=== PATIENT | male | born 1955 | race Caucasian/White ===

== ENCOUNTER → 2016-11-06 | Outpatient (CLI) | payer SELFPAY ==
[~2016-11-06] MED LIST: LANTUS100 UNIT/1 SQ
== END | disposition home or self-care (01) ==
LOC: RAD 11-05 11:00 → MRI 09:58 → RAD 11:00 → MRI 11:00
DX: M75.120 Complete rotator cuff tear or rupture of unspecified shoulder, not specified as traumatic (principal); M19.012 Primary osteoarthritis, left shoulder
CPT/HCPCS: 73221

== ENCOUNTER → 2017-07-18 | Outpatient (CLI) | payer SELFPAY | END | disposition home or self-care (01) | LOC: MRI 10:35 → RAD 11:00 → MRI 11:00 | DX: I67.89 Other cerebrovascular disease (principal); G93.89 Other specified disorders of brain; R27.8 Other lack of coordination; R53.1 Weakness | CPT/HCPCS: 70551 ==

== ENCOUNTER 2017-08-09 17:25 | Observation (INO) | payer SELFPAY ==
[~2017-08-09] VITALS: Ht 177.8 cm; Wt 122.5 kg
[2017-08-09 18:03] LABS: HEMATOCRIT 38.5 % (38.0-50.0); MCHC 33.2 G/DL (30.0-36.0); MCV 90.4 FL (86-99); MEAN PLAT.VOLUME 9.9 uM^3 (9.0-12.4); PLATELET COUNT 253 K/uL (156-360); RBC DIS.WIDTH-CV 12.8 % (11.8-14.6); RBC DIS.WIDTH-SD 41.6 % (39-53); RED BLOOD COUNT 4.26 M/uL (4.00-5.50); WHITE BLOOD COUNT 9.1 K/uL (4.1-10.2)
[2017-08-09 18:11] LABS: CHLORIDE 103 mEq/L (99-109); POTASSIUM 4.1 mEq/L (3.7-5.4); SODIUM 140 mEq/L (136-147)
[2017-08-09 18:13] LABS: GLUCOSE 282 mg/dL (70-99)
[2017-08-09 18:14] LABS: ANION GAP 11 MEQ/L (2-14)
[2017-08-09 18:17] LABS: GFR ESTIMATE (CALCULATED) 55 mL/min/ (58.99-99999)
[2017-08-09 18:18] LABS: UREA NITROGEN (BUN) 17 mg/dL (9-23)
[2017-08-09 18:24] LABS: TROP-I INTERPRETATION NEGATIVE; TROPONIN-I < 0.01 ng/mL (0.0-0.30)
[2017-08-09] MEDS ORDERED: VASOTEC20 MG PO (19:10)
[2017-08-09] MEDS ORDERED: LANTUS 10100 UNITS/ SC (19:10)
[2017-08-09] MEDS ORDERED: GLUCOPHAGE500 MG PO (19:11)
[2017-08-09] MEDS ORDERED: AMARYL1 MG PO (19:11)
[2017-08-09] MEDS ORDERED: SIMVASTATIN20 MG PO (19:12)
[2017-08-09] MEDS ORDERED: LASIX20 MG PO (19:12)
[2017-08-09] MEDS ORDERED: LOPRESSOR50 MG PO (19:12)
[2017-08-09] MEDS ORDERED: PERCOCET 10/1 TABLET PO (19:13)
[2017-08-09] MEDS ORDERED: ASPIRIN81 M2 PO (19:13)
[2017-08-09] MEDS ORDERED: ALLOPURINOL300 MG PO (19:13)
[2017-08-09] MEDS ORDERED: HUMALOG100 UNIT/1 SC (19:15)
[2017-08-09 20:53] VITALS: BP 162/80
[2017-08-09 21:44] LABS: POINT-OF-CARE METER ID UU14162513
[2017-08-09 23:16] VITALS: BP 143/63
[2017-08-09 23:16] LABS: TROP-I INTERPRETATION NEGATIVE; TROPONIN-I < 0.01 ng/mL (0.0-0.30)
[2017-08-10 03:41] VITALS: BP 135/77
[2017-08-10 05:45] LABS: HEMATOCRIT 35.7 % (38.0-50.0); MCH 30.6 PG (29.0-34.0); MCHC 33.9 G/DL (30.0-36.0); MCV 90.4 FL (86-99); MEAN PLAT.VOLUME 10.1 uM^3 (9.0-12.4); PLATELET COUNT 249 K/uL (156-360); RBC DIS.WIDTH-CV 12.8 % (11.8-14.6); RBC DIS.WIDTH-SD 42.4 % (39-53); RED BLOOD COUNT 3.95 M/uL (4.00-5.50); WHITE BLOOD COUNT 7.9 K/uL (4.1-10.2)
[2017-08-10 05:56] LABS: TROP-I INTERPRETATION NEGATIVE; TROPONIN-I < 0.01 ng/mL (0.0-0.30)
[2017-08-10 06:02] LABS: ANION GAP 10 MEQ/L (2-14); CHLORIDE 105 MEQ/L (99-109); GFR ESTIMATE (CALCULATED) > 59 mL/min/ (58.99-99999); POTASSIUM 3.4 MEQ/L (3.7-5.4); SAMPLE HEMOLYSIS CHECK 0; SAMPLE ICTERIC CHECK 0; SAMPLE LIPEMIA CHECK 0; SODIUM 142 MEQ/L (136-147); UREA NITROGEN (BUN) 18 mg/dL (9-23)
[2017-08-10 06:05] LABS: GLUCOSE 100 mg/dL (70-99)
[2017-08-10 08:00] VITALS: BP 145/79
[2017-08-10 12:13] VITALS: BP 137/87
[2017-08-10 17:39] LABS: POINT-OF-CARE METER ID UU13113700
== END 2017-08-10 20:22 | disposition left against medical advice (07) ==
LOC: EME 17:25 → EDOF 19:28 → ENRESERV 19:29 → 5WEST 20:39
PROVIDERS: Hospitalist
DX: R07.9 Chest pain, unspecified (principal); R06.02 Shortness of breath; M79.89 Other specified soft tissue disorders; Z53.21 Procedure and treatment not carried out due to patient leaving prior to being seen by health care provider; I45.2 Bifascicular block; I10 Essential (primary) hypertension; G20 Parkinson's disease; E78.5 Hyperlipidemia, unspecified; E11.65 Type 2 diabetes mellitus with hyperglycemia; E66.01 Morbid (severe) obesity due to excess calories; Z68.38 Body mass index [BMI] 38.0-38.9, adult; Z90.49 Acquired absence of other specified parts of digestive tract; Z82.49 Family history of ischemic heart disease and other diseases of the circulatory system; Z79.82 Long term (current) use of aspirin; Z79.4 Long term (current) use of insulin
CPT/HCPCS: 71020; 80048; 82948; 84484; 85027; 93005; 99281; 99285; G0378; J1644; J1815; J7030

== ENCOUNTER → 2017-08-21 | Outpatient (CLI) | payer SELFPAY ==
[~2017-08-21] MED LIST changes: +ALLOPURINOL300 MG PO; +AMARYL1 MG PO; +ASPIRIN81 M2 PO; +GLUCOPHAGE500 MG PO; +HUMALOG100 UNIT/1 SC; +LANTUS 10100 UNITS/ SC; +LASIX20 MG PO; +LOPRESSOR50 MG PO; +PERCOCET 10/1 TABLET PO; +SIMVASTATIN20 MG PO; +VASOTEC20 MG PO
== END | disposition home or self-care (01) ==
LOC: NUC 08:05
DX: I25.9 Chronic ischemic heart disease, unspecified (principal); I45.2 Bifascicular block; G20 Parkinson's disease
CPT/HCPCS: 78452; 93017; A9500; J2785

== ENCOUNTER 2017-09-10 07:58 | Day surgery (SDC) | payer BC ==
[~2017-09-10] VITALS: Ht 177.8 cm; Wt 122.5 kg
[~2017-09-10 07:58] MED LIST changes: -AMARYL1 MG PO; +AMARYL2 MG PO; +CARBIDOPA-LEVO1 EA10 PO; +HYDROCHLOROTHIA25 MG PO; +VITAMIN B COMP1 EACH PO; +VITAMIN D35000 UNIT PO; +ZYRTEC10 M3 PO
== END 2017-09-10 17:30 | disposition home or self-care (01) ==
LOC: CATH 07:58
PROVIDERS: Internal Medicine Cardiovascular Disease
DX: I25.10 Atherosclerotic heart disease of native coronary artery without angina pectoris (principal); I10 Essential (primary) hypertension; E11.9 Type 2 diabetes mellitus without complications; E78.5 Hyperlipidemia, unspecified; E66.01 Morbid (severe) obesity due to excess calories; Z68.41 Body mass index [BMI] 40.0-44.9, adult; Z79.4 Long term (current) use of insulin; Z82.49 Family history of ischemic heart disease and other diseases of the circulatory system; I45.10 Unspecified right bundle-branch block; Z79.82 Long term (current) use of aspirin
CPT/HCPCS: 82948; C1769; C1887; J1644; J2250; J3010; J7040

== ENCOUNTER → 2018-01-06 | Outpatient (CLI) | payer BC | END | disposition home or self-care (01) | LOC: NUC 09:00 | DX: G21.4 Vascular parkinsonism (principal) | CPT/HCPCS: 78607; A9584 ==

== ENCOUNTER 2018-03-26 07:01 | Observation (INO) | payer BC ==
[~2018-03-26] VITALS: Ht 177.8 cm; Wt 124.7 kg
[~2018-03-26 07:01] MED LIST changes: +LOPRESSOR100 M1 PO; -LOPRESSOR50 MG PO; -SIMVASTATIN20 MG PO; +ZOCOR10 MG PO; +ZYRTEC10 M2 PO; -ZYRTEC10 M3 PO
[2018-03-26 08:06] LABS: HEMATOCRIT 38.1 % (38.0-50.0); HEMOGLOBIN 13.2 G/DL (12.5-16.6); MCH 30.9 PG (29.0-34.0); MCHC 34.6 G/DL (30.0-36.0); MCV 89.2 FL (86-99); PLATELET COUNT 268 K/uL (156-360); RBC DIS.WIDTH-CV 12.8 % (11.8-14.6); RBC DIS.WIDTH-SD 41.8 % (39-53); RED BLOOD COUNT 4.27 M/uL (4.00-5.50); WHITE BLOOD COUNT 12.2 K/uL (4.1-10.2)
[2018-03-26 08:17] LABS: CHLORIDE 111 mEq/L (99-109); POTASSIUM 4.5 mEq/L (3.7-5.4); SODIUM 144 mEq/L (136-147)
[2018-03-26 08:19] LABS: GLUCOSE 83 mg/dL (70-99)
[2018-03-26 08:22] LABS: CREATININE 1.2 mg/dL (0.6-1.3); GFR ESTIMATE (CALCULATED) > 59 mL/min/ (58.99-99999)
[2018-03-26 08:23] LABS: UREA NITROGEN (BUN) 16 mg/dL (9-23)
[2018-03-26 08:46] LABS: APPEARANCE CLEAR ((CLEAR)); BILIRUBIN NEGATIVE; BLOOD SMALL; COLOR YELLOW ((YELLOW)); GLUCOSE (STRIP) NEGATIVE; KETONES NEGATIVE; LEUKOCYTES NEGATIVE; NITRITE NEGATIVE; PROTEIN (STRIP) >=500; SPECIFIC GRAVITY 1.011 (1.000-1.030); UROBILINOGEN 0.2 MG/DL (0.2-1.0)
[2018-03-26 09:05] LABS: BACTERIA RARE /HPF; EPITHELIAL CELLS RARE /HPF; HYALINE CASTS 0-5 /LPF; MUCUS RARE /LPF; RED BLOOD CELLS 0-5 /HPF (0-5); UCUL ADDED? NO; WHITE BLOOD CELLS 0-5 /HPF (0-5)
[2018-03-26] MEDS ORDERED: SYMMETREL100 M1 PO (11:54)
[2018-03-26] MEDS ORDERED: CHLOROTHIAZIDE250 MG PO (11:55)
[2018-03-26] MEDS ORDERED: LEVEMIR FL100 UNIT/1 SC (11:55)
[2018-03-26] MEDS ORDERED: ZESTRIL5 MG PO (11:55)
[2018-03-26 14:17] LABS: HDL CHOLESTEROL 48 MG/DL (Desirable>=40); LDL CHOLESTEROL 68 mg/dL (Desirable<100); NON-HDL CHOLESTEROL 92 mg/dL (Desirable<160); TOTAL CHOLESTEROL 140 mg/dL (Desirable<200); TRIGLYCERIDES 119 MG/DL (Normal: <150)
[2018-03-26 15:22] VITALS: BP 164/98
[2018-03-27 00:09] VITALS: BP 140/65
[2018-03-27 05:17] VITALS: BP 167/81
[2018-03-27 06:04] LABS: HEMATOCRIT 37.2 % (38.0-50.0); HEMOGLOBIN 12.4 G/DL (12.5-16.6); MCH 29.8 PG (29.0-34.0); MCHC 33.3 G/DL (30.0-36.0); MCV 89.4 FL (86-99); PLATELET COUNT 259 K/uL (156-360); RBC DIS.WIDTH-CV 12.8 % (11.8-14.6); RBC DIS.WIDTH-SD 42.2 % (39-53); RED BLOOD COUNT 4.16 M/uL (4.00-5.50); WHITE BLOOD COUNT 8.5 K/uL (4.1-10.2)
[2018-03-27 08:00] VITALS: BP 187/86
[2018-03-27 10:27] LABS: HEMOGLOBIN A1c (GLYCOHEMOGLOB) 8.6 % (Below 5.7)
[2018-03-28] MEDS ORDERED: GLUCOPHAGE500 MG PO (07:32)
[2018-03-28] MEDS ORDERED: AMARYL2 MG PO (07:32)
== END 2018-03-27 10:46 | disposition home or self-care (01) ==
LOC: EME 07:01 → EDOF 11:11 → 4SOUTH 11:11 → ENRESERV 11:14 → 4SOUTH 14:23
PROVIDERS: Emergency Medicine; Internal Medicine; Physician Assistant Medical
DX: R56.9 Unspecified convulsions (principal); E11.649 Type 2 diabetes mellitus with hypoglycemia without coma; I10 Essential (primary) hypertension; E78.5 Hyperlipidemia, unspecified; G20 Parkinson's disease; I99.8 Other disorder of circulatory system; D72.829 Elevated white blood cell count, unspecified; M25.512 Pain in left shoulder; Z90.49 Acquired absence of other specified parts of digestive tract; Z79.82 Long term (current) use of aspirin; Z79.4 Long term (current) use of insulin
CPT/HCPCS: 70450; 70551; 80048; 80061; 81003; 82948; 83036; 85027; 92610 GN; 93005; 93880; 95819; 99281; 99284; G0378; G8978 GP CH; G8979 GP CH; G8980 GP CH; G8987 GO CH; G8988 GO CH; G8989 GO CH; G8996 GN CH; G8997 GN CH; G8998 GN CH; G9033; J1650; J1815

== ENCOUNTER 2018-03-28 05:00 | Inpatient (IN) | payer BC ==
[~2018-03-28] VITALS: Ht 177.8 cm; Wt 120.4 kg
[~2018-03-28 05:00] MED LIST changes: +CHLOROTHIAZIDE250 MG PO; +LEVEMIR FL100 UNIT/1 SC; +SYMMETREL100 M1 PO; +ZESTRIL5 MG PO
[2018-03-28 05:29] LABS: HEMATOCRIT 38.8 % (38.0-50.0); HEMOGLOBIN 13.5 G/DL (12.5-16.6); MCH 30.4 PG (29.0-34.0); MCHC 34.8 G/DL (30.0-36.0); MCV 87.4 FL (86-99); PLATELET COUNT 263 K/uL (156-360); RBC DIS.WIDTH-CV 12.5 % (11.8-14.6); RBC DIS.WIDTH-SD 39.9 % (39-53); RED BLOOD COUNT 4.44 M/uL (4.00-5.50); WHITE BLOOD COUNT 9.8 K/uL (4.1-10.2)
[2018-03-28 05:40] LABS: CHLORIDE 105 mEq/L (99-109); SODIUM 139 mEq/L (136-147)
[2018-03-28 05:46] LABS: CREATININE 1.5 mg/dL (0.6-1.3); GFR ESTIMATE (CALCULATED) 51 mL/min/ (58.99-99999)
[2018-03-28 05:47] LABS: UREA NITROGEN (BUN) 16 mg/dL (9-23)
[2018-03-28 05:53] LABS: ALBUMIN 3.5 g/dL (3.2-4.8)
[2018-03-28 05:56] LABS: TOTAL PROTEIN 6.4 g/dL (6.4-8.3)
[2018-03-28 05:57] LABS: TOTAL BILIRUBIN 1.3 mg/dL (0.0-1.0)
[2018-03-28 05:58] LABS: ALKALINE PHOSPHATASE 99 IU/L (3-129)
[2018-03-28 06:00] LABS: LIPASE 22 U/L (1.0-51.0)
[2018-03-28 06:01] LABS: AST (GOT) 19 IU/L (2-34); DIRECT BILIRUBIN 0.4 mg/dL (0.0-0.3)
[2018-03-28 06:02] LABS: ALT (GPT) 21 IU/L (3-49)
[2018-03-28 06:05] LABS: GLUCOSE 454 mg/dL (70-99); POTASSIUM 3.3 mEq/L (3.7-5.4)
[2018-03-28] MEDS ORDERED: GLUCOPHAGE500 MG PO (07:32)
[2018-03-28] MEDS ORDERED: AMARYL2 MG PO (07:32)
[2018-03-28 09:23] LABS: APPEARANCE CLEAR ((CLEAR)); BILIRUBIN NEGATIVE; BLOOD SMALL; COLOR YELLOW ((YELLOW)); GLUCOSE (STRIP) >=500; KETONES NEGATIVE; LEUKOCYTES NEGATIVE; NITRITE NEGATIVE; PROTEIN (STRIP) >=500; SPECIFIC GRAVITY 1.023 (1.000-1.030); UROBILINOGEN 0.2 MG/DL (0.2-1.0)
[2018-03-28 09:30] LABS: BACTERIA NONE SEEN /HPF; EPITHELIAL CELLS RARE /HPF; HYALINE CASTS 0-5 /LPF; MUCUS TRACE /LPF; RED BLOOD CELLS 0-5 /HPF (0-5); UCUL ADDED? NO; WHITE BLOOD CELLS 0-5 /HPF (0-5)
[2018-03-28 09:48] LABS: TROP-I INTERPRETATION NEGATIVE; TROPONIN-I 0.02 ng/mL (0.0-0.30)
[2018-03-28 11:02] VITALS: BP 208/100
[2018-03-28 11:35] VITALS: BP 189/95; BP 195/96; BP 222/100
[2018-03-28 14:56] VITALS: BP 198/94
[2018-03-28 15:54] LABS: CHLORIDE 104 MEQ/L (99-109); CREATININE 1.2 MG/DL (0.6-1.3); GFR ESTIMATE (CALCULATED) > 59 mL/min/ (58.99-99999); SODIUM 138 MEQ/L (136-147); UREA NITROGEN (BUN) 15 mg/dL (9-23)
[2018-03-28 16:00] LABS: GLUCOSE 415 mg/dL (70-99); POTASSIUM 4.1 MEQ/L (3.7-5.4)
[2018-03-28 17:34] VITALS: BP 177/85
[2018-03-28 19:00] VITALS: BP 166/79
[2018-03-29] VITALS (7 sets, daily range): BP systolic 162–206; BP diastolic 72–98
[2018-03-29 05:10] LABS: HEMATOCRIT 36.6 % (38.0-50.0); HEMOGLOBIN 12.4 G/DL (12.5-16.6); MCH 29.9 PG (29.0-34.0); MCHC 33.9 G/DL (30.0-36.0); MCV 88.2 FL (86-99); PLATELET COUNT 283 K/uL (156-360); RBC DIS.WIDTH-CV 12.7 % (11.8-14.6); RED BLOOD COUNT 4.15 M/uL (4.00-5.50); WHITE BLOOD COUNT 13.3 K/uL (4.1-10.2)
[2018-03-29 05:46] LABS: CHLORIDE 108 MEQ/L (99-109); CREATININE 1.1 MG/DL (0.6-1.3); GFR ESTIMATE (CALCULATED) > 59 mL/min/ (58.99-99999); SODIUM 143 MEQ/L (136-147); UREA NITROGEN (BUN) 12 mg/dL (9-23)
[2018-03-29 06:06] LABS: GLUCOSE 49 mg/dL (70-99); POTASSIUM 3.1 MEQ/L (3.7-5.4)
[2018-03-29 21:35] LABS: MAGNESIUM 1.6 mg/dl (1.3-2.7); POTASSIUM 4.2 MEQ/L (3.7-5.4)
[2018-03-30 08:15] VITALS: BP 198/94
[2018-03-30 08:30] LABS: BASOPHIL (%) 0.6 % (0-1); BASOPHIL COUNT 0.1 K/uL (0-0.1); EOSINOPHIL (%) 3.4 % (0-5); EOSINOPHIL COUNT 0.3 K/uL (0-0.3); HEMATOCRIT 39.7 % (38.0-50.0); HEMOGLOBIN 13.7 G/DL (12.5-16.6); IMMATURE GRANULOCYTE (%) 0.2 % (0.0-0.7); LYMPHOCYTE (%) 22.1 % (15-42); LYMPHOCYTE COUNT 2.1 K/uL (1.0-2.8); MCH 30.2 PG (29.0-34.0); MCHC 34.5 G/DL (30.0-36.0); MCV 87.6 FL (86-99); MONOCYTE (%) 8.5 % (3-12); MONOCYTE COUNT 0.8 K/uL (0-0.8); NEUTROPHIL (%) 65.2 % (45-76); NEUTROPHIL COUNT 6.1 K/uL (1.8-6.4); PLATELET COUNT 282 K/uL (156-360); RBC DIS.WIDTH-CV 12.7 % (11.8-14.6); RBC DIS.WIDTH-SD 40.8 % (39-53); RED BLOOD COUNT 4.53 M/uL (4.00-5.50); WHITE BLOOD COUNT 9.4 K/uL (4.1-10.2)
[2018-03-30 08:44] LABS: CHLORIDE 106 MEQ/L (99-109); CREATININE 1.2 MG/DL (0.6-1.3); GFR ESTIMATE (CALCULATED) > 59 mL/min/ (58.99-99999); GLUCOSE 60 mg/dL (70-99); POTASSIUM 3.5 MEQ/L (3.7-5.4); SODIUM 143 MEQ/L (136-147); UREA NITROGEN (BUN) 11 mg/dL (9-23)
[2018-03-30 09:55] VITALS: BP 155/73
[2018-03-30 12:04] VITALS: BP 141/74
[2018-03-30 15:33] VITALS: BP 187/80
[2018-03-30 18:20] VITALS: BP 157/74
[2018-03-30 19:43] VITALS: BP 185/88
[2018-03-31] VITALS (7 sets, daily range): BP systolic 135–184; BP diastolic 68–94
[2018-03-31 04:36] LABS: BASOPHIL (%) 0.5 % (0-1); EOSINOPHIL (%) 2.9 % (0-5); EOSINOPHIL COUNT 0.3 K/uL (0-0.3); HEMOGLOBIN 13.2 G/DL (12.5-16.6); IMMATURE GRANULOCYTE (%) 0.3 % (0.0-0.7); LYMPHOCYTE (%) 21.9 % (15-42); LYMPHOCYTE COUNT 1.9 K/uL (1.0-2.8); MCH 30.3 PG (29.0-34.0); MCHC 34.7 G/DL (30.0-36.0); MCV 87.2 FL (86-99); MONOCYTE COUNT 0.8 K/uL (0-0.8); NEUTROPHIL (%) 65.4 % (45-76); NEUTROPHIL COUNT 5.6 K/uL (1.8-6.4); PLATELET COUNT 259 K/uL (156-360); RBC DIS.WIDTH-CV 12.6 % (11.8-14.6); RBC DIS.WIDTH-SD 40.2 % (39-53); RED BLOOD COUNT 4.36 M/uL (4.00-5.50); WHITE BLOOD COUNT 8.6 K/uL (4.1-10.2)
[2018-03-31 04:46] LABS: CHLORIDE 108 mEq/L (99-109); POTASSIUM 3.3 mEq/L (3.7-5.4); SODIUM 141 mEq/L (136-147)
[2018-03-31 04:52] LABS: CREATININE 1.6 mg/dL (0.6-1.3); GFR ESTIMATE (CALCULATED) 47 mL/min/ (58.99-99999)
[2018-03-31 04:53] LABS: UREA NITROGEN (BUN) 15 mg/dL (9-23)
[2018-03-31 05:01] LABS: GLUCOSE 195 mg/dL (70-99)
[2018-04-01] VITALS (7 sets, daily range): BP systolic 119–145; BP diastolic 58–89
[2018-04-01 05:45] LABS: BASOPHIL (%) 0.5 % (0-1); BASOPHIL COUNT 0.1 K/uL (0-0.1); EOSINOPHIL COUNT 0.3 K/uL (0-0.3); HEMATOCRIT 37.2 % (38.0-50.0); HEMOGLOBIN 12.5 G/DL (12.5-16.6); IMMATURE GRANULOCYTE (%) 0.4 % (0.0-0.7); LYMPHOCYTE (%) 22.1 % (15-42); LYMPHOCYTE COUNT 2.5 K/uL (1.0-2.8); MCH 29.9 PG (29.0-34.0); MCHC 33.6 G/DL (30.0-36.0); MONOCYTE (%) 10.2 % (3-12); MONOCYTE COUNT 1.1 K/uL (0-0.8); NEUTROPHIL (%) 63.8 % (45-76); NEUTROPHIL COUNT 7.1 K/uL (1.8-6.4); PLATELET COUNT 303 K/uL (156-360); RBC DIS.WIDTH-CV 12.9 % (11.8-14.6); RBC DIS.WIDTH-SD 42.1 % (39-53); RED BLOOD COUNT 4.18 M/uL (4.00-5.50); WHITE BLOOD COUNT 11.2 K/uL (4.1-10.2)
[2018-04-01 06:12] LABS: CHLORIDE 107 MEQ/L (99-109); GFR ESTIMATE (CALCULATED) 36 mL/min/ (58.99-99999); POTASSIUM 3.5 MEQ/L (3.7-5.4); SODIUM 141 MEQ/L (136-147)
[2018-04-01 06:17] LABS: GLUCOSE 112 mg/dL (70-99); UREA NITROGEN (BUN) 24 mg/dL (9-23)
[2018-04-01 22:35] LABS: UR CREATININE CONCENTRATION 265.9 MG/DL
[2018-04-02 00:06] VITALS: BP 134/64
[2018-04-02 04:24] VITALS: BP 133/66
[2018-04-02 05:46] LABS: BASOPHIL (%) 0.4 % (0-1); BASOPHIL COUNT 0.1 K/uL (0-0.1); EOSINOPHIL (%) 3.3 % (0-5); EOSINOPHIL COUNT 0.4 K/uL (0-0.3); HEMATOCRIT 37.2 % (38.0-50.0); HEMOGLOBIN 12.5 G/DL (12.5-16.6); IMMATURE GRANULOCYTE (%) 0.3 % (0.0-0.7); LYMPHOCYTE (%) 24.6 % (15-42); LYMPHOCYTE COUNT 2.8 K/uL (1.0-2.8); MCH 29.8 PG (29.0-34.0); MCHC 33.6 G/DL (30.0-36.0); MCV 88.8 FL (86-99); MONOCYTE (%) 10.1 % (3-12); MONOCYTE COUNT 1.1 K/uL (0-0.8); NEUTROPHIL (%) 61.3 % (45-76); NEUTROPHIL COUNT 6.9 K/uL (1.8-6.4); PLATELET COUNT 310 K/uL (156-360); RBC DIS.WIDTH-CV 12.8 % (11.8-14.6); RBC DIS.WIDTH-SD 41.3 % (39-53); RED BLOOD COUNT 4.19 M/uL (4.00-5.50); WHITE BLOOD COUNT 11.2 K/uL (4.1-10.2)
[2018-04-02 06:15] LABS: CHLORIDE 106 MEQ/L (99-109); GFR ESTIMATE (CALCULATED) 28 mL/min/ (58.99-99999); POTASSIUM 3.3 MEQ/L (3.7-5.4); SODIUM 141 MEQ/L (136-147); UREA NITROGEN (BUN) 30 mg/dL (9-23)
[2018-04-02 06:36] LABS: CREATININE 2.5 MG/DL (0.6-1.3); GLUCOSE 67 mg/dL (70-99)
[2018-04-02 07:19] VITALS: BP 135/62
[2018-04-02 11:33] VITALS: BP 132/62
[2018-04-02] MEDS ORDERED: LOPRESSOR50 MG PO (11:51)
[2018-04-02] MEDS ORDERED: NIFEDIPINE20 MG PO (11:52)
== END 2018-04-02 13:03 | disposition left against medical advice (07) | DRG 304 ==
LOC: EME 05:00 → EDOF 08:27 → ENRESERV 08:28 → 4SOUTH 09:49
PROVIDERS: Hospitalist; Internal Medicine Nephrology; Physician Assistant
DX: I16.0 Hypertensive urgency (principal); E11.65 Type 2 diabetes mellitus with hyperglycemia; E11.649 Type 2 diabetes mellitus with hypoglycemia without coma; G20 Parkinson's disease; N17.0 Acute kidney failure with tubular necrosis; E86.0 Dehydration; G40.909 Epilepsy, unspecified, not intractable, without status epilepticus; E78.5 Hyperlipidemia, unspecified; R19.7 Diarrhea, unspecified; E66.01 Morbid (severe) obesity due to excess calories; R55 Syncope and collapse; E87.6 Hypokalemia; I10 Essential (primary) hypertension; R26.9 Unspecified abnormalities of gait and mobility; Z79.82 Long term (current) use of aspirin; Z79.899 Other long term (current) drug therapy; Z79.4 Long term (current) use of insulin; Z90.49 Acquired absence of other specified parts of digestive tract
CPT/HCPCS: 70450; 70551; 74185; 76770; 80048; 80048 91; 80061; 80076; 81003; 82570; 82948; 83036; 83605; 83690; 83735; 84132 91; 84156; 84484; 85025; 85027; 87040; 92610 GN; 93005; 93880; 93975; 95819; 99281; 99284; 99285; G0378; G8978 GP CH; G8979 GP CH; G8980 GP CH; G8987 GO CH; G8988 GO CH; G8989 GO CH; G8996 GN CH; G8997 GN CH; G8998 GN CH; G9033; J1644; J1650; J1815; J2405; J3480; J7030; J7120